=== PATIENT | female | born 1960 | race Caucasian/White ===

== ENCOUNTER → 2018-05-14 | Outpatient (CLI) | payer OTHER ==
[~2018-05-14] MED LIST: ALDACTONE50 MG PO; CLARITIN10 MG PO; CYMBALTA60 MG PO; FLAX SEED OIL1000 MG PO; FOLIC ACID 1 MG1 MG PO; LIPITOR 20 MG T20 M1 PO; LOSARTAN-HCTZ1 EACH PO; METHOTREXATE SUBQ; NEURONTIN600 MG PO; NORFLEX100 MG PO; PREMARIN0.9 MG; PROAIR HFA8.5 GM INH; PROMETHAZINE D480 ML PO; ROBAXIN 750 MG750 M1 PO; SULFASALAZINE500 M4 PO; TESSALON PERLE100 MG PO; VITAMIN D2000 UNIT PO; VITAMIN D400 UNI4; ZOFRAN 4 MG ORAL4 MG PO; ZPAK PO
== END ==
LOC: M.LAB 00:19
DX: Z01.812 Encounter for preprocedural laboratory examination (principal)

== ENCOUNTER → 2018-08-13 | Outpatient (CLI) | payer OTHER ==
--- NOTE | 2018-08-13 14:49 | 2DMMODE ---
[place] [address] 2 D/M-MODE ECHOCARDIOGRAM Name: CATTLE MANAGERREGINA Room: [facility]#: [id number] Admission: 08/13/18 Attend Phys: Que Reynolds, Discharge: Date of : 58 Date of Service: 08/13/18 1449 Report #: [id number] THIS REPORT FOR: //name// APPROVED REPORT Study performed: 08/13/2018 08:03:48 EXAM: Comprehensive 2D, Doppler, and color-flow Echocardiogram BSA: 1.72 HR: 60 bpm BP: 122/72 mmHg Other Information Study Quality: Good Indications Hypertension/HDD 2D Dimensions IVSd: 12.29 (7-11mm) LVOT Diam: 18.93 (18-24mm) LVDd: 40.56 mm PWd: 8.24 (7-11mm) Ascending Ao: 28.86 (22-36mm) LVDs: 20.80 (25-40mm) Aortic Root: 26.24 mm Volumes Left Atrial Volume (Systole) LA ESV Index: 21.20 mL/m2 Aortic Valve AoV Peak Leeroy.: 1.38 m/s AO Peak Gr.: 7.56 mmHg LVOT Max P.58 mmHg AO Mean Gr.: 4.39 mmHg LVOT Mean P.31 mmHg LVOT Max V: 0.80 m/s AO V2 VTI: 29.37 cm LVOT Mean V: 0.53 m/s ERYN (VTI): 2.25 cm2 LVOT V1 VTI: 23.45 cm AI Bonner: 1.82 m/s2 AI PHT: 601.46 ms Mitral Valve E/A Ratio: 1.40 MV Decel. Time: 217.55 ms MV E Max Leeroy.: 0.83 m/s MV PHT: 63.09 [place] [address] 2 D/M-MODE ECHOCARDIOGRAM Name: CATTLE MANAGERREGINA Room: [facility]#: [id number] Admission: 08/13/18 Attend Phys: Que Reynolds, Discharge: Date of : 58 Date of Service: 08/13/18 1449 Report #: [id number] MVA (PHT): 3.49 cm2 TDI E/Lateral E': 6.92 E/Medial E': 8.30 Medial E' Leeroy.: 0.10 m/s Lateral E' Leeroy.: 0.12 m/s Pulmonary Valve PV Peak Leeroy.: 0.81 m/s PV Peak Gr.: 2.60 mmHg Tricuspid Valve RAP Estimate: 5.00 mmHg TR Peak Gr.: 18.58 mmHg RVSP: 23.58 mmHg PA Pressure: 23.58 mmHg Left Ventricle The left ventricle is normal size. There is normal LV segmental wall motion. There is normal left ventricular wall thickness. Left ventricular systolic function is normal. The left ventricular ejection fraction is within the normal range. LVEF is 60-65%. The left ventricular diastolic function is normal. Right Ventricle The right ventricle is normal size. The right ventricular systolic function is normal. Atria The left atrium size is normal. The right atrium size is normal. Aortic Valve The aortic valve is normal in structure. Mild aortic regurgitation. There is no aortic valvular stenosis. Mitral Valve The mitral valve is normal in structure. Mild mitral regurgitation. No evidence of mitral valve stenosis. Tricuspid Valve The tricuspid valve is normal in structure. Mild tricuspid regurgitation. Pulmonic Valve Pulmonic valve is not well visualized. Mild [place] [address] 2 D/M-MODE ECHOCARDIOGRAM Name: REGINA CHAUDHARI Room: [facility]#: [id number] Admission: 08/13/18 Attend Phys: Que Reynolds, Discharge: Date of : 58 Date of Service: 08/13/18 1449 Report #: [id number] Great Vessels The aortic root is normal in size. IVC is normal in size and collapses >50% with inspiration. Pericardium There is no pericardial effusion. <Conclusion> LVEF is 60-65%. Mild aortic regurgitation. Mild mitral regurgitation. <ELECTRONICALLY SIGNED> By: Stewart Clarke MD, FACC 08/13/18 1449 1449 [id number] Stewart Clarke MD, FAC /INF
== END ==
LOC: M.CRD 07:54
DX: I08.8 Other rheumatic multiple valve diseases (principal); I10 Essential (primary) hypertension

== ENCOUNTER → 2018-08-13 | Outpatient (CLI) | payer OTHER | LOC: M.CT 08:30 | DX: Z13.6 Encounter for screening for cardiovascular disorders (principal) ==